=== PATIENT | male | born 2000 | race Caucasian/White ===

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

== ENCOUNTER 2021-02-15 01:25 | Emergency (ER) | payer BC ==
[~2021-02-15] VITALS: Ht 180.3 cm; Wt 69.9 kg
[~2021-02-15 01:25] MED LIST changes: +Tobrex Ophth S2.5 ML OPH
== END 2021-02-15 04:04 | disposition left against medical advice (07) ==
LOC: ED 01:25
DX: R10.9 Unspecified abdominal pain (principal); Z88.8 Allergy status to other drugs, medicaments and biological substances; Z79.899 Other long term (current) drug therapy